=== PATIENT | male | born 1975 | race African-American/Black ===

== ENCOUNTER 2021-09-08 18:19 | Emergency (ER) | payer OTHER ==
[~2021-09-08] VITALS: Ht 172.7 cm; Wt 90.7 kg
[2021-09-08 19:24] LABS: Basophils # (auto) 0 10 ^3/uL (0-0.2); Basophils % (auto) 0.2 % (0.0-2.0); Eosinophils # (auto) 0 10 ^3/uL (0-0.8); Eosinophils % (auto) 0.1 % (0.0-7.0); Hematocrit 43.2 % (41.0-53.0); Hemoglobin 14.3 g/dL (13.5-17.5); Lymphocytes % (auto) 14.2 % (10.0-50.0); Mean Corpuscular Hemoglobin 29.2 pg (28.0-32.0); Mean Corpuscular Hgb Conc. 33.1 g/dL (32.0-36.0); Mean Corpuscular Volume 88.2 fL (80.0-100.0); Monocytes # (auto) 0.3 10 ^3/uL (0-1.3); Monocytes % (auto) 4.7 % (0.0-12.0); Neutrophils # (auto) 5.8 10 ^3/uL (1.6-8.6); Neutrophils % (auto) 80.8 % (37.0-80.0); Nucleated Red Blood Cells % 0.1 %; Red Cell Distribution Width 12.9 % (11.8-14.3); White Blood Cell 7.2 10^3/uL (4.4-10.8)
[2021-09-08 19:38] LABS: INR 1.05 (0.9-1.15)
[2021-09-08 19:43] LABS: Albumin 3.6 g/dL (3.4-5.0); Anion Gap 4 (5-15); Blood Urea Nitrogen 12 mg/dL (7-18); Calcium 8.2 mg/dL (8.5-10.1); Carbon Dioxide 29 mmol/L (21-32); Chloride 102 mmol/L (98-107); Glucose 107 mg/dL (74-106); Magnesium 2.5 mg/dL (1.6-2.6); Potassium 3.8 mmol/L (3.5-5.1); Sodium 135 mmol/L (136-145)
[2021-09-08 19:52] LABS: Alanine Aminotransferase 70 U/L (16-61); Alkaline Phosphatase 83 U/L (45-117); Aspartate Aminotransferase 65 U/L (15-37); BUN/Creatinine Ratio 9.4; Bilirubin, Total 0.5 mg/dL (0.2-1.0); CRP High Sensitivity 2.08 mg/dL (< 0.3); GFR African American 77 mL/min; GFR Non-African American 64 mL/min; Total Protein 7.5 g/dL (6.4-8.2)
[2021-09-08] MEDS ORDERED: DexAMETHasone SOD PHOS 10MG/1ML VIAL INJ IV ONE (21:15)
[2021-09-08] MEDS ORDERED: ACETAMINOPHEN 500 MG TAB PO ONE (21:15)
[2021-09-08] MEDS ORDERED: AZITHROMYCIN 500MG/ 250ML 250 ML IV ONE (21:15)
[2021-09-08] MEDS ORDERED: KETOROLAC TROMETH 30 MG/ML 1ML VIAL IV ONE (22:00)
[2021-09-09] MEDS ORDERED: ACETAMINOPHEN 500 MG TAB PO ONE (00:30)
[2021-09-09 03:20] VITALS: BP 116/69
== END 2021-09-09 04:29 | disposition home or self-care (01) ==
LOC: ER 18:21
DX: U07.1 COVID-19 (principal); J12.82 Pneumonia due to coronavirus disease 2019
CPT/HCPCS: 36415; 71045; 80053; 83605; 83615; 83735; 83880; 84484; 85025; 85379; 85610; 86141; 87040; 87426; 93005; 96365; 96366; 96375; 99285; J0456; J1100; J1885